=== PATIENT | male | born 1955 | race Caucasian/White ===

== ENCOUNTER → 2018-09-28 | Outpatient (CLI) | payer OTHER ==
[2018-09-28 17:15] LABS: Basophils % (A) 0 %; Eosinophils # (A) 0.2 k/uL (0-0.7); Eosinophils % (A) 2 %; HCT 48.5 % (39.0-53.0); HGB 16.2 gm/dL (13.0-17.5); Lymphocytes # (A) 1.6 k/uL (1.0-4.8); Lymphocytes % (A) 21 %; MCH 29.3 pg (25.0-35.0); MCHC 33.4 g/dL (31.0-37.0); MCV 87.6 fL (80.0-100.0); Mean Platelet Volume 9.2; Monocytes # (A) 0.5 k/uL (0-1.0); Monocytes % (A) 7 %; Neutrophils # (A) 5.1 k/uL (1.3-7.7); Neutrophils % (A) 68 %; Platelet Count 186 k/uL (150-450); RBC 5.54 m/uL (4.30-5.90); WBC 7.5 k/uL (3.8-10.6)
[2018-09-28 17:25] LABS: ALT 40 U/L (21-72); AST 32 U/L (17-59); Albumin 5.3 g/dL (3.5-5.0); Alkaline Phosphatase 83 U/L (38-126); Amylase 49 U/L (30-110); Anion Gap 11 mmol/L; Blood Urea Nitrogen 17 mg/dL (9-20); Calcium 10.4 mg/dL (8.4-10.2); Carbon Dioxide 30 mmol/L (22-30); Chloride 99 mmol/L (98-107); Glucose 136 mg/dL (74-99); Lipase 84 U/L (23-300); Potassium 4.5 mmol/L (3.5-5.1); Sodium 140 mmol/L (137-145); Total Bilirubin 0.6 mg/dL (0.2-1.3); Total Protein 8.4 g/dL (6.3-8.2)
[2018-09-28 19:03] LABS: Appearance,Urine Clear (Clear); Bilirubin,Urine Negative (Negative); Blood,Urine Negative (Negative); Color,Urine Light Yellow; Glucose,Urine (UA) Negative (Negative); Ketones,Urine Negative (Negative); Leukocyte Esterase,Urine Negative (Negative); Nitrite,Urine Negative (Negative); Protein,Urine Negative (Negative); Specific Gravity,Urine 1.025 (1.001-1.035); Urobilinogen,Urine <2.0 mg/dL (<2.0)
--- NOTE | 2018-09-28 19:07 | CT ---
EXAMINATION TYPE: CT abdomen pelvis w con DATE OF EXAM: 09/28/2018 COMPARISON: None. HISTORY: Pt complains of RLQ pain and white stool x [address] concerned w/acute appendicitis. CT DLP: 1718 mGycm, Automated Exposure Control for Dose Reduction was Utilized. CONTRAST: CT scan of the abdomen and pelvis is performed with oral and with IV Contrast, patient injected with 100 mL of Isovue 300. FINDINGS: LUNG BASES: No significant abnormality is appreciated. LIVER/GB: Liver is diffusely low dense relative to spleen consistent with diffuse fatty infiltration. PANCREAS: No significant abnormality is seen. SPLEEN: No significant abnormality is seen. ADRENALS: No significant abnormality is seen. KIDNEYS: Symmetric cortical medullary uptake and excretion from both kidneys without evidence of conc erning mass or hydronephrosis bilaterally. Simple appearing 1.8 cm cyst posteriorly upper pole level right kidney axial image 25. BOWEL: The oral contrast reaches level of the distal left colon. There is no suspicious small or larg e bowel dilatation. Terminal ileum is felt within normal limits on coronal image 41. Appendix not pal ntified and may be surgically absent. No suspicious inflammatory change at base of cecum is present. PROSTATE/SEMINAL VESICLES: Heterogeneous upper limits of normal in size some central calcifications a nd bulging on bladder base. Adjacent pelvic phleboliths are present. Adjacent bladder wall is mildly thickened and trabeculated suggesting some outlet obstruction related to BPH. LYMPH NODES: No greater than 1cm abdominal or pelvic lymph nodes are appreciated. OSSEOUS STRUCTURES: Moderate to advanced disc space narrowing with vacuum disc phenomenon lumbosacral junction. Mild facet arthropathy lower lumbar spine. OTHER: Tiny umbilical hernia containing fat and tiny mesenteric vessels coronal image 38. IMPRESSION: Appendix not identified. No inflammatory change at base of cecum which shows good visuali zation with normal surrounding fat. I suspect it is probably surgically absent? No bowel obstruction. No suspicious acute findings seen to account for patient's symptoms of right lower quadrant pain.
== END | disposition home or self-care (01) ==
LOC: RADCTMAIN 16:22
PROVIDERS: ATTEND Family Medicine
DX: K35.80 Unspecified acute appendicitis (principal); R10.31 Right lower quadrant pain
CPT/HCPCS: 80053; 82150; 83690; 85025; 81003; 74177; 36415; Q9967

== ENCOUNTER 2024-09-08 16:57 | Emergency (ER) | payer MEDICARE, OTHER ==
[2024-09-08 17:19] VITALS: TEMP 98
[2024-09-08] MEDS: LIDOCAINE 1% INJ 10MG/ML (20 ML MDV) SQ ONE (17:41)
[2024-09-08] MEDS: DIPH,PERTUS(ACELL)TETVAC-LF 0.5 ML VIAL IM ONE (17:42)
--- NOTE | 2024-09-08 17:59 | XR ---
EXAMINATION TYPE: XR finger RT DATE OF EXAM: 09/08/2024 5:53 PM COMPARISON: None. CLINICAL INDICATION: Male, 68 years old with history of laceration tip of thumb, pain TECHNIQUE: XR finger RT views are submitted. FINDINGS: No displaced fracture is seen with certainty. Joint spaces are well-preserved. Soft tissue laceratio n at the tip of the right thumb. No radiopaque foreign body seen. IMPRESSION: No acute displaced fracture or dislocation. [facility], , 09/08/2024 5:57 PM
--- NOTE | 2024-09-08 19:37 | ED ---
Wound/Laceration HPI - General Chief Complaint: Wound/Laceration Stated Complaint: R thumb laceration Time Seen by Provider: 09/08/24 17:28 Source: patient Mode of arrival: ambulatory Limitations: no limitations - History of Present Illness Initial Comments: 68-year-old male presenting with chief complaint of laceration to his right thumb. Patient was using a saw at home when this happened. This is a circular laceration near the tip of the thumb. He still has full range of motion. Bleeding is well-controlled. Unsure when his last tetanus shot was. - Related Data Home Medications Medication Instructions Recorded Confirmed Aspirin 81 mg PO DAILY 11/28/13 11/28/13 Previous Rx's Medication Instructions Recorded Cephalexin [Keflex] 500 mg PO Q8HR #21 cap 11/28/13 Hydrocodone/Acetaminophen [[place] 1 each PO Q6HR PRN #20 tab 11/28/13 5-325] Cephalexin [Keflex] 500 mg PO Q8HR 5 Days #15 cap 09/08/24 Allergies Allergy/AdvReac Type Severity Reaction Status Date / Time No Known Allergies Allergy Verified 09/08/24 17:19 Review of Systems ROS Statement: Those systems with pertinent positive or pertinent negative responses have been documented in the HPI. ROS Other: All systems not noted in ROS Statement are negative. 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 Absent: meningismus Respiratory exam: Absent: respiratory distress Neurological exam: Present: alert, oriented X3 Psychiatric exam: Present: normal affect, normal mood Expanded Type of lesion: Present: laceration (Tip of right thumb) Course Vital Signs 09/08/24 09/08/24 17:16 19:51 Temperature 98.0 F Pulse Rate 109 H 81 Respiratory 20 16 Rate Blood Pressure 156/91 147/84 O2 Sat by Pulse 96 96 Oximetry Procedures - Laceration Laceration #1 Consent Obtained: verbal consent Indication: laceration Site: hand (Right thumb) Size (cm): 2 Description: flap Depth: simple, single layer Anesthetic Used: lidocaine 1%, without epi Anesthesia Technique: local infiltration Pre-repair: wound explored, irrigated extensively Type of Sutures: nylon Size of Sutures: 4-0 Number of Sutures: 3 Technique: simple, interrupted Patient Tolerated Procedure: well Medical Decision Making - Medical Decision Making Was pt. sent in by a medical professional or institution (NATALIE Ruiz, SCALP TREATMENT OPERATOR, urgent care, hospital, or jail...) When possible be specific @ -No Did you speak to anyone other than the patient for history (EMS, parent, family, police, friend...)? What history was obtained from this source @ -No Did you review nursing and triage notes (agree or disagree)? Why? @ -I reviewed and agree with nursing and triage notes Were old charts reviewed (outside hosp., previous admission, EMS record, old EKG, old radiological studies, urgent care reports/EKG's, jail records)? Report findings @ -No old charts were reviewed Differential Diagnosis (chest pain, altered mental status, abdominal pain women, abdominal pain men, vaginal bleeding, weakness, fever, dyspnea, syncope, headache, dizziness, GI bleed, back pain, seizure, CVA, palpatations, mental health, musculoskeletal)? @ -Differential includes uncomplicated laceration, fracture, nerve injury, vessel injury, not an all-inclusive list EKG interpreted by me (3pts min.). @ -As above X-rays interpreted by me (1pt min.). @ -X-ray negative for fracture or dislocation CT interpreted by me (1pt min.). @ -None done U/S interpreted by me (1pt. min.). @ -None done What testing was considered but not performed or refused? (CT, X-rays, U/S, labs)? Why? @ -None What meds were considered but not given or refused? Why? @ -None Did you discuss the management of the patient with other professionals (professionals i.e. NATALIE Ruiz, SCALP TREATMENT OPERATOR, lab, RT, psych nurse, health and social care teacher, vascular ultrasound technician, teacher, juvenile justice officer, case finisher)? Give summary @ -No Was smoking cessation discussed for >3mins.? @ -No Was critical care preformed (if so, how long)? @ -No Were there social determinants of health that impacted care today? How? (Homelessness, low income, unemployed, alcoholism, drug addiction, transportation, low edu. Level, literacy, decrease access to med. care, fci, rehab)? @ -No Was there de-escalation of care discussed even if they declined (Discuss DNR or withdrawal of care, Hospice)? DNR status @ -No What co-morbidities impacted this encounter? (DM, HTN, Smoking, COPD, CAD, Cancer, CVA, ARF, Chemo, Hep., AIDS, mental health diagnosis, sleep apnea, m orbid obesity)? @ -None Was patient admitted / discharged? Hospital course, mention meds given and route, prescriptions, significant lab abnormalities, going to OR and other pertinent info. @ -68-year-old male presenting with chief complaint of laceration to the tip of the right thumb after using a saw at home. His tetanus is updated today. Patient has full range of motion of the finger. X-ray negative for fracture or dislocation. The wound was cleansed and repaired, see procedure note for details. Dressing is applied. Patient is educated on wound care and signs of infection. Patient is a diabetic and will be placed on prophylactic Keflex for 5 days. Follow-up with PCP. Report back to ER with any new or worsening symptoms. Discussed return parameters and answered all questions. Patient conveyed verbal understanding and agreed to the plan. I discussed this case in detail with my attending Dr. Giron Undiagnosed new problem with uncertain prognosis? @ -No Drug Therapy requiring intensive monitoring for toxicity (Heparin, Nitro, Insulin, Cardizem)? @ -No Were any procedures done? @ -Laceration repair Diagnosis/symptom? @ -Laceration Acute, or Chronic, or Acute on Chronic? @ -Acute Uncomplicated (without systemic symptoms) or Complicated (systemic symptoms)? @ -Uncomplicated Side effects of treatment? @ -No Exacerbation, Progression, or Severe Exacerbation? @ -No Poses a threat to life or bodily function? How? (Chest pain, [place], [place], pneumonia, PE, COPD, DKA, ARF, appy, cholecystitis, CVA, Diverticulitis, Homicidal, Suicidal, threat to staff... and all critical care pts) @ -No Disposition Clinical Impression: Laceration Disposition: HOME SELF-CARE Condition: Good Instructions (If sedation given, give patient instructions): Care For Your Stitches (ED), Finger Laceration (ED) Additional Instructions: Follow-up with PCP. Report back to ER with any new or worsening symptoms. Keep the wound clean dry and covered. Wash regularly with soap and water. Avoid fully submerging the wound in water for prolonged periods of time. Monitor for signs of infection, including but not limited to redness, swelling, warmth, tenderness, discharge, fever. Sutures may be removed in 10 to 14 days Prescriptions: Cephalexin [Keflex] 500 mg PO Q8HR 5 Days #15 cap Is patient prescribed a controlled substance at d/c from ED?: No Referrals: Laurent Cobb DO [Primary Care Provider] - 1-2 days Time of Disposition: 19:37
[2024-09-08 19:54] VITALS: BP 147/84; PULSE 81; RESP 16
== END 2024-09-08 19:51 | disposition home or self-care (01) ==
LOC: EC 16:57
DX: S61.011A Laceration without foreign body of right thumb without damage to nail, initial encounter (principal); Z23 Encounter for immunization; W27.0XXA Contact with workbench tool, initial encounter; Y92.009 Unspecified place in unspecified non-institutional (private) residence as the place of occurrence of the external cause
CPT/HCPCS: 73140; 90715; 12001; 99283; 90471; J2003